=== PATIENT | female | born 1965 | race Caucasian/White ===

== ENCOUNTER 2021-10-29 14:01 | Emergency (ER) | payer BC ==
[~2021-10-29] VITALS: Ht 162.6 cm; Wt 70.4 kg
[2021-10-29 14:33] VITALS: BP 126/84
--- NOTE | 2021-10-29 14:41 | NUR ---
PT TO WAIT IN LOBBY
[2021-10-29] MEDS ORDERED: LIDOCAINE MPF 1% 10 MG/ML VIAL INJ ONE ×2 (14:55)
[2021-10-29] MEDS ORDERED: IBUPROFEN 600 MG TAB PO ONE (14:55)
[2021-10-29] MEDS ORDERED: BACITRACIN OINT 500 UNITS/GM PKT TP ONE (14:55)
--- NOTE | 2021-10-29 15:33 | NUR ---
I&D SETUP AT BED SIDE
[2021-10-29] MEDS ORDERED: CEPH-588 PO (15:55)
[2021-10-29] MEDS ORDERED: IBUP-1842 PO (15:55)
[2021-10-29] MEDS ORDERED: BACI1PAC6 TP (15:55)
--- NOTE | 2021-10-29 16:01 | NUR ---
APPLIED BACITRACIN TO PT'S LEFT TOE AND DRESSED WITH NON-ADHERENT AND WRAPPED WITH 1" GUAZE ROLL RN NOTIFIED.
[2021-10-29 16:04] VITALS: BP 126/84
--- NOTE | 2021-10-29 16:04 | NUR ---
Patient discharged with v/s stable. Written and verbal after care instructions ABOUT [facility] given and explained. Patient alert, oriented and verbalized understanding of instructions. Ambulatory with steady gait. All questions addressed prior to discharge. ID band removed. Patient advised to follow up with PMD. Rx of BACITRACIN OINT, KEFLEX, AND MOTRIN given.
--- NOTE | 2021-10-29 16:16 | NUR ---
Chart checked and completed. The patient's care was reviewed and supervised by Melvina Yañez, RN, RN.
== END 2021-10-29 16:04 | disposition home or self-care (01) ==
LOC: MED 14:01
DX: L03.039 Cellulitis of unspecified toe (principal); E11.9 Type 2 diabetes mellitus without complications; Z79.899 Other long term (current) drug therapy
CPT/HCPCS: 10060; 99283; J2001